=== PATIENT | male | born 1965 | race Caucasian/White ===

== ENCOUNTER 2017-06-09 09:14 | Emergency (ER) | payer MEDICARE ==
--- NOTE | ~2017-06-09 | CT98 ---
[facility] A Service of [facility] RADIOLOGY TEXT RESULTS PATIENT: LINDA APARICIO JR LOCATION: SED : 63 UNIT #: [id number] AGE: [address]: Colten Alston MD SEX: M ORDER DR: [id number] [place] [address] [id number] E MR#: [id number] Acc #: [id number] NAME: LINDA APARICIO JR : 1965 SEX: M STUDY DATE/TIME: 06/09/2017 10:03 UNIT: SED ROOM: STUDY DESCRIPTION: CT Lumbar Spine Wo Cont Attending Physician: Colten Alston M.D. Ordering Physician: Colten Alston M.D. Primary Care Physician: Chad Ma M.D. MEDICAL IMAGING REPORT This report is preliminary unless electronic signature is present. EXAM CT lumbar spine without contrast. INDICATIONS Lower back pain since . PROCEDURE Unenhanced CT of the lumbar spine. This CT exam was performed with one or more of the following radiation dose reduction techniques: automatic exposure control, adjustment of mA and/or kV according to patient size, and iterative reconstruction. COMPARISON 01/01/2011 FINDINGS Lumbar bodies have normal height. Bilateral L5 pars defects. 6 mm anterolisthesis L5 on S1. Findings are not significantly changed from the prior. No aggressive appearing bone lesion or fracture. L1-L2 mild circumferential disc bulge. There is mild to moderate central canal narrowing and mild bilateral neural foraminal narrowing. L2-L3: Circumferential disc bulge. Mild facet change results in significant central canal narrowing and moderate to moderately severe bilateral neural foraminal narrowing. L3-L4: Circumferential disc bulge. Bilateral facet arthrosis with severe central canal narrowing. There is moderately severe to severe bilateral neural foraminal narrowing. L4-L5: Circumferential disc bulge, facet arthrosis. Previous left laminectomy changes. Severe central canal narrowing and bilateral neural [facility] A Service of [facility] RADIOLOGY TEXT RESULTS PATIENT: LINDA APARICIO JR LOCATION: SED : 63 UNIT #: [id number] AGE: [address]: Colten Alston MD SEX: M ORDER DR: foraminal narrowing. L5-S1: Broad-based posterior disc bulge. Moderate to moderately severe central canal narrowing with severe bilateral neural foraminal narrowing. IMPRESSION 1. No definite acute findings. 2. Multilevel degenerative disc disease and facet arthrosis with multilevel central canal, neural foraminal narrowing. 3. L5 pars defects with stable anterolisthesis of L5 on S1 measuring 6 mm. 1. Dictated by... Gerardo Lawson M.D. THIS IS AN ELECTRONICALLY VERIFIED REPORT Gerardo Lawson M.D. at 06/11/2017 5:02 PM KIMBERLY/martine TD: 06/09/2017 20:49 JOB #: [id number] MEDICAL IMAGING REPORT Page 1 of 1
[~2017-06-09 09:14] MED LIST: ACETAMINOPHEN650 M1 PO; BENAZEPRIL-HCTZ1 T14 PO; DAKIN'S MODIF1000 ML EXT; DIFLUCAN INJ; FAT EMULSION; FLAGYL IV; FLEXERIL10 MG PO; HYDROCHLOROTH12.5 M1 PO; LOTENSIN HCT 201 TAB PO; MEDROL4 MG/DOSE- PO; MIRALAX17 GM PO; NO MEDICATIONS; PERCOCET 10/3251 TAB PO; PRIMAXIN IV; PROTONIX PO; SYNTHROID PO; TPN; TYLOX1 CAP 5/50 PO; XENADERM; [UNRECOGNIZED DRUG - OTHER] INJ
[2017-06-09] MEDS ORDERED: HYDROCODON-ACE1 EA14 (09:20)
[2017-06-09] MEDS ORDERED: FLEXERIL10 MG PO (09:20)
== END 2017-06-09 11:02 | disposition home or self-care (01) ==
LOC: SED 09:14
DX: M51.36 Other intervertebral disc degeneration, lumbar region (principal); I10 Essential (primary) hypertension; Z90.49 Acquired absence of other specified parts of digestive tract; Z88.5 Allergy status to narcotic agent; Z79.899 Other long term (current) drug therapy
CPT/HCPCS: 72131; 96372; 99284; J1885